=== PATIENT | male | born 1955 | race Caucasian/White ===

== ENCOUNTER 2019-07-18 09:29 | Outpatient (CLI) | payer BC, SELFPAY ==
[2019-07-19 10:02] LABS: PSA, Diagnostic 0.5 ng/mL (0.0-4.5)
[2019-07-19 10:51] LABS: Hepatitis C Ab w Rflx HCV PCR Negative (Negative)
== END 2019-07-18 09:49 ==
PROVIDERS: PCP Family Medicine; Visit Provider Family Medicine
DX: Z00.00 Encounter for general adult medical examination without abnormal findings (principal); N40.0 Benign prostatic hyperplasia without lower urinary tract symptoms; L98.9 Disorder of the skin and subcutaneous tissue, unspecified
CPT/HCPCS: 36415; 86803; 84153

== ENCOUNTER → 2021-11-01 13:07 | Outpatient (CLI) | payer MEDICARE, SELFPAY ==
--- NOTE | 2021-11-01 13:00 | DI.RAD_ITS ---
Exam(s) XR CERVICAL SPINE COMP 4-5V EXAM: XR CERVICAL SPINE COMP 4-5V CLINICAL HISTORY: lt neck and arm pain,G54.0,cervical radicular pain,M54.12, thoracic outlet. TECHNIQUE: 2D digital imaging was performed. Five views. COMPARISON: No exams were available for comparison FINDINGS: BONES: No fracture or destructive lesion. Endplate osteophytes projecting anteriorly at C5-6. Facets: Degenerative changes throughout, greatest on the left, causing neural foraminal narrowing, gr eatest at C5-6. Right-sided neural foraminal narrowing is seen at C3-4. DISKS: Moderate to severe narrowing of the C5-6 disc space. The remaining intervertebral disc spaces are maintained. ALIGNMENT: Cervical spinal alignment is within normal limits. The odontoid and atlantoaxial articulat ions are normal. SOFT TISSUE: Chronic appearing soft tissue calcification posterior soft tissues. The lung apices are clear. IMPRESSION: Degenerative disc changes at C5-6. Multilevel facet degenerative changes, greater on the left forami nal narrowing. DATA REPOSITORY: RADIATION DOSE DELIVERED:
[2021-11-01 23:13] LABS: PSA, Diagnostic 0.6 ng/mL (<=4.5)
== END ==
PROVIDERS: PCP Family Medicine; Visit Provider Family Medicine
DX: N40.0 Benign prostatic hyperplasia without lower urinary tract symptoms (principal); M47.22 Other spondylosis with radiculopathy, cervical region; M48.02 Spinal stenosis, cervical region; M79.602 Pain in left arm; Z80.42 Family history of malignant neoplasm of prostate
CPT/HCPCS: 36415; 72050; 84153

== ENCOUNTER 2021-11-01 18:16 | Outpatient (CLI) | payer MEDICARE, SELFPAY | END 2021-11-01 18:17 | disposition home or self-care (01) | LOC: LBO 18:17 | PROVIDERS: PCP Family Medicine; Visit Provider Family Medicine ==

== ENCOUNTER 2022-11-15 03:24 | Outpatient (CLI) | payer MEDICARE, SELFPAY ==
[2022-11-16 18:09] LABS: PSA, Diagnostic 0.5 ng/mL (<=4.5)
== END 2022-11-15 03:25 | disposition home or self-care (01) ==
LOC: LBO 03:24
PROVIDERS: PCP Family Medicine; Visit Provider Family Medicine
DX: N40.0 Benign prostatic hyperplasia without lower urinary tract symptoms (principal)
CPT/HCPCS: 36415; 84153

== ENCOUNTER 2022-11-18 00:38 | Outpatient (CLI) | payer MEDICARE, SELFPAY ==
--- NOTE | 2022-11-18 07:59 | DI.RAD_ITS ---
Exam(s) XR KNEE LT 3V AP,LAT,[place] EXAM: XR KNEE LT 3V AP,LAT,[place] CLINICAL HISTORY: l knee pain, M25.562. TECHNIQUE: 2D digital imaging was performed of the left knee. Three images were obtained. AP, late ral and PA tunnel views were obtained. COMPARISON: No exams were available for comparison FINDINGS: BONES: No acute fracture is present. No bony destructive lesion is seen. JOINTS: There is moderate narrowing of the medial femoral tibial joint. There is a small spur at the medial aspect of the tibial plateau. No joint effusion is seen. SOFT TISSUE: There is a tiny well corticated old soft tissue calcification adjacent to the medial fem oral condyle. This may reflect old injury. Atherosclerosis is present. IMPRESSION: Mild degenerative changes of the left knee. DATA REPOSITORY: RADIATION DOSE DELIVERED:
== END 2022-11-18 00:58 ==
LOC: DI 00:39
PROVIDERS: PCP Family Medicine; Visit Provider Family Medicine
DX: M17.12 Unilateral primary osteoarthritis, left knee (principal)
CPT/HCPCS: 73562

== ENCOUNTER 2023-03-03 02:32 | Outpatient (CLI) | payer MEDICARE, SELFPAY ==
[2023-03-03 09:07] LABS: ALT 24 U/L (16-63); AST 20 U/L (15-37); Albumin 3.7 g/dL (3.4-5.0); Alkaline Phosphatase 80 U/L (46-116); Anion Gap 8.3 mmol/L (3-11); BUN 24 mg/dL (7-18); Bilirubin, Total 0.6 mg/dL (0.2-1.0); CO2 23.7 mmol/L (21.0-32.0); CREATININE 1.1 mg/dL (0.70-1.30); Calcium 9.1 mg/dL (8.5-10.1); Calculated LDL 152 mg/dL (<100); Chloride 105 mmol/L (98-107); Cholesterol 226 mg/dL (<200); Estimated GFR 72.67 (mL/min/1.73m2); Glucose 97 mg/dL (74-106); HDL Cholesterol 64 mg/dL (40-60); Sodium 137 mmol/L (136-145); Triglyceride 52 mg/dL (<150)
[2023-03-07 16:07] LABS: Apolipoprotein B, Serum 98 mg/dL; Beta VLDL Cholesterol Not Detected mg/dL (<15); Beta VLDL Triglycerides Not Detected mg/dL (<15); Cholesterol, Total, CDC 221 mg/dL; Chylomicron Cholesterol Not Detected; Chylomicron Triglycerides Not Detected; HDL Cholesterol, CDC 55 mg/dL (>=40); LDL Cholesterol 141 mg/dL; LDL Triglycerides 25 mg/dL (<=50); Lp(a) Cholesterol 11 mg/dL (<5); LpX Not detected; Triglycerides, CDC 66 mg/dL; VLDL Cholesterol 14 mg/dL (<30); VLDL Triglycerides 24 mg/dL (<120)
== END 2023-03-03 02:33 | disposition home or self-care (01) ==
LOC: LBO 02:33
PROVIDERS: PCP Family Medicine; Visit Provider Family Medicine
DX: E78.5 Hyperlipidemia, unspecified (principal); I10 Essential (primary) hypertension
CPT/HCPCS: 36415; 80053; 80061; 82172; 82664

== ENCOUNTER → 2023-12-08 16:22 | Outpatient (CLI) | payer MEDICARE, SELFPAY ==
--- NOTE | 2023-12-08 15:33 | DI.RAD_ITS ---
Exam(s) XR LUMBAR SPINE COMPLETE EXAM: XR LUMBAR SPINE COMPLETE CLINICAL HISTORY: M54.50 lbp with intermittent radiculopathy b/l. TECHNIQUE: 2D digital imaging was performed. Five views. COMPARISON: No exams were available for comparison FINDINGS: BONES: No fracture or destructive lesion. Vertebral body heights are maintained. Lower lumbar facet hypertrophy identified greatest at L4-5.. DISKS: Bsaq-ge-yaelbrhl narrowing of the L3-4 disc space. Lopl-gg-zftjhtrx narrowing of the L5-S1 di sc space. Endplate osteophytes are noted throughout. Intervertebral disc spaces are maintained. ALIGNMENT: Degenerative scoliosis. SOFT TISSUE: Normal. IMPRESSION: Degenerative disc changes and facet degenerative changes. DATA REPOSITORY: RADIATION DOSE DELIVERED:
--- OUTSIDE RECORDS SUMMARY | 2023-12-08 16:26 | XMS_ITS | Encounter Summary ---
Author Organization [facility] Address [address] [place] [address] Care Team Providers Care Mandolin Repair Person Name Role Phone Unknown, Provider Primary Care Provider [phone] Encounter Details Date Type Department Care Team (Late st Contact Info) Description 07/18/2019 Lab Requisition [facility] Pathology & Laboratory Medicine - [address] [address] Unknown, Provider, Social History Tobacco Use Types Packs/Day Years Used Date Smoking Tobacco: Never Assessed Sex and Gender Information Value Date Recorded Sex Assigned at Not on file Gender Identity Not on file Sexual Orientation Not on file documented as of this encounter Plan of Treatment Not on file documented as of this encounter Procedures Procedure Name Priority Date/Time Associated Diagnosis Comments HEPATITIS C AB W REFLEX TO HCV RNA BY PCR Routine 07/18/2019 9:33 EST documented in this encounter Results * HEPATITIS C AB W REFLEX TO HCV RNA BY PCR (07/18/2019 9:33 EST) Hep C Antibody Negative Negative 07/19/2019 10:47 EST [facility] Blood VENOUS BLOOD / Unknown 07/18/2019 9:33 EST 07/18/2019 20:24 EST Provider Unknown CHEMISTRY & BLOOD GA S ORDERABLES [facility] [address] [place] [address] documented in this encounter Visit Diagnoses Not on filedocumented in this encounter Care Teams Mandolin Repair Person Relationship Specialty Start Date End Date Unknown, Provider, PCP - General 08/02/12 documented as of this encounter
--- OUTSIDE RECORDS SUMMARY | 2023-12-08 16:26 | XMS_ITS | Continuity of Care Document ---
Author Organization [facility] Address [address] [place] [address] Care Team Providers Care Medical Practice Manager Name Role Phone CHIP RAMIREZ,DC, WANDER Jacques Primary Care Physician Encounter [facility] NBR [id number] Date(s): 02/14/23 - 02/14/[address] [address]- Encounter Diagnosis Pain in left knee(Final) - Discharge Disposition: Home or Self Care Attending Physician: John Meng MD Admitting Physician: John Meng MD Allergies, Adverse Reactions, Alerts Substance Reaction Severity Status penicillin Moderate Active Problem List Condition Confirmation Course Effective Dates Status Health St atus Informant Left knee pain Confirmed Active Unilateral primary osteoarthritis, left knee Confirmed Active Results Radiology Reports * Exam Date Time Procedure Performing Provider Status 02/14/23 1:43 PM XR Knee Complete 4+ Views Left Alejandro Clay (Verified) Notes: (XR Knee Complete 4+ Views Left) Reason For Exam: Left knee pain XR Knee Complete 4+ Views Left EXAM DESCRIPTION: XR Knee Complete 4+ Views Left 02/14/2023 INDICATION: LEFT KNEE PAIN COMPARISON: None IMPRESSION: No acute fracture or dislocation Medial femorotibial compartment joint space narrowing and mild osteophyte formation consistent with osteoarthritic changes. No focal lytic or sclerotic lesion Increased density in the suprapatellar region on the lateral view suspicious for component of joint effusion. Small corticated osseous density adjacent to the medial aspect of the medial femoral condyle suggesting sequela of old injury. JOB #: [id number] Final Signed by: Earl Alvarado MD Signed (Electronic Signature): 02/14/2023 1:53 pm Social History Social History Type Response Tobacco Never tobacco user T obacco Use:. Sex Patient Care team information Care Team Personnel Name: CHIP RAMIREZ,DC, WANDER Jacques Position: No Access Member Role: Primary Care Physician Address: Address: [address] [address]- Care Team Related Persons Name: LAMINE BOATENG Address: [address] Name: LAMINE BOATENG Address: Home [address] [place] [id number] [facility]
--- OUTSIDE RECORDS SUMMARY | 2023-12-08 16:26 | XMS_ITS | Encounter Summary ---
Author Organization [facility] [place] [address] Care Team Providers Care Plodder Operator Name Role Phone Ryanne Murphy MD Primary Care Provider [phone] Encounter Details Date Type Department Care Team (Latest Contact Info) Description 12/12/2018 9:14 PM EDT - 12/12/2018 11:59 PM EDT Hospital [place] [address] Discharge Disposition: Home Social History Tobacco Use Types Packs/Day Years Used Date Smoking Tobacco: Never Assessed Sex and Gender Information Value Date Recorded Sex Assigned at Not on file Gender Identity Not on file Sexual Orientation Not on file documented as of this encounter Plan of Treatment Not on file documented as of this encounter Procedures Procedure Name Priority Date/Time Associated Diagnosis Comments SURGICAL PATHOLOGY REPORT Routine 12/12/2018 6:40 PM EDT documented in this encounter Results * Surgical Pathology Report (12/12/2018 6:40 PM EDT) Surgical Pathology Report [id number] ? Location: [facility] The signing pathologist has (i) examined the relevant preparation(s) for the specimen(s) and (ii) rendered or confirmed the diagnosis(es). . ?Surgical Pathology DIAGNOSIS Right posterior rectal hemorrhoid: Thrombosed benign hemorrhoid Electronically signed by: ??Ishan Santana MD, I Verified: ??12/14/2018 ?Pathologist Performed at: ??-[facility] [place] Dept. of Pathology, [place], [place] CLINICAL INFORMATION Specimen Submitted: A - Right posterior rectal hemorrhoid Clinical History and Diagnosis: Bloody thrombosed right posterior hemorrhoid Referring Identifier: ?(not provided) SPECIMEN PROCESSING A - Labeled/Fixativ e: Right posterior rectal hemorrhoid, formalin. Quantity/Size: ??Single, 3 x 1.4 x 1.4 cm. Tissue Description: Intact, polypoid portions of pink-red mucosa with underlying, congested vasculature. Sections/Proces sing: Inked and serially sectioned. Log Grader sections in 1 cassette labeled A1. ??jmb [facility] 12/12/2018 6:40 PM EDT Alejandro Gooden DO PATHOLOGY/CYT OLOGY ORDERABLES [facility] [place] [address] documented in this encounter Visit Diagnoses Not on filedocumented in this encounter Care Teams Plodder Operator Relationship Specialty Start Date End Date Ryanne Murphy MD [address] [place] [address] PCP - General 04/20/10 documented as of this encounter
--- OUTSIDE RECORDS SUMMARY | 2023-12-08 16:26 | XMS_ITS | Clinical Summary ---
[place] [address] Care Team Providers Care Size Tester Name Role Phone Ryanne Murphy MD Primary Care Provider [phone] Allergies Active Allergy Reactions Criticality Noted Date Comments Penicillins CIS - Hives Immunizations Name Administration Dates Next Due TD Adult 10/21/2003 Social History Tobacco Use Types Packs/Day Years Used Date Smoking Tobacco: Never Assessed Sex and Gender Information Value Date Recorded Sex Assigned at Not on file Gender Identity Not on file Sexual Orientation Not on file Plan of Treatment Health Maintenance Due Date Last Done Comments CT Colonography 1955 Colonoscopy 1955 Colorectal Cancer Screening 1955 FIT DNA 1955 FIT 1955 Sigmoidoscopy (10 year) with FIT yearly 1955 Sigmoidoscopy 1955 Hepatitis C Screening 01/21/1972 Lipid Screening 01/21/1972 Tdap adult 1973 Zoster vaccine (1 of 2) 01/21/2004 Advance Directive 2009 Tetanus vaccine 10/20/2013 10/21/2003 Pneumoccocal Vaccine: 65+ (1 of 1 - PCV) 2019 Covid-19 Vaccine (1 - 2022- season) 2023 Influenza (Flu) vaccine (1 o f 1 - Influenza standard series) 01/28/2024 Care Teams Size Tester Relationship Specialty Start Date End Date Ryanne Murphy MD [address] [place], [place] [id number] PCP - General 04/20/10
--- OUTSIDE RECORDS SUMMARY | 2023-12-08 16:26 | XMS_ITS | Clinical Summary ---
Author Organization [facility] Address [address] [place] [address] Care Team Providers Care Japanese Interpreter Name Role Phone Unknown, Provider Primary Care Provider [phone] Social History Tobacco Use Types Packs/Day Years Used Date Smoking Tobacco: Never Assessed Sex and Gender Information Value Date Recorded Sex Assigned at Not on file Gender Identity Not on file Sexual Orientation Not on file Plan of Treatment Health Maintenance Due Date Last Done Comments RSV Immunization ( o r 60+ Years) (1 - 1-dose 60+ series) 2014 Fall Risk Screening 2019 COVID-19 Vaccine ( season) 2023 Hepatitis C Screen Completed 07/18/2019 Procedures Procedure Name Priority Date/Time Associated Diagnosis Comments HEPATITIS C AB W REFLEX TO HCV RNA BY PCR Routine 07/18/2019 9:33 EST from Last 3 Months or Most Recently Relevant to Health Maintenance Results * HEPATITIS C AB W REFLEX TO HCV RNA BY PCR (07/18/2019 9:33 EST) Hep C Antibody Negative Negative 07/19/2019 10:47 EST [facility] Blood VENOUS BLOOD / Unknown 07/18/2019 9:33 EST 07/18/2019 20:24 EST Provider Unknown CHEMISTRY & BLOOD GA S ORDERABLES [facility] [address] [place] [address] from Last 3 Months or Most Recently Relevant to Health Maintenance Care Teams Japanese Interpreter Relationship Specialty Start Date End Date Unknown, Provider, PCP - General 3/7/13
--- OUTSIDE RECORDS SUMMARY | 2023-12-08 16:26 | XMS_ITS | Encounter Summary ---
Author Organization [facility] Address [address] [place] [address] Care Team Providers Care Compo Conveyor Operator Name Role Phone Unavailable Primary Care Provider Unavailabl e Encounter Details Date Type Department Care Team (Late st Contact Info) Description 06/19/2007 Results Only [facility] [address] [place] [address] Alejandro Izaguirre, DO [address] [facility] [address] [place] [address] Social History Tobacco Use Types Packs/Day Years Used Date Smoking Tobacco: Never Assessed Sex and Gender Information Value Date Recorded Sex Assigned at Not on file Gender Identity Not on file Sexual Orientation Not on file documented as of this encounter Plan of Treatment Not on file documented as of this encounter Procedures Procedure Name Priority Date/Time Associated Diagnosis Comments SURGICAL PATHOLOGY Routine 06/19/2007 0:00 EST documented in this encounter Results * SURGICAL PATHOLOGY (06/19/2007 0:00 EST) Pathology Report: SURGICAL PATHOLOGY REPORT Reports generated via electronic interface contain original data; however they are lacking the format of the original report. Caution should be taken when reading/interpreti ng unformatted reports. Name: ? CACHORRO BOATENG ? Accession #: ? [id number] ? : ? 1955 (Age: 52) ??M ? Collect Date: ? 06/19/2007 ? Location: ? [facility] ? Receive Date: ? 06/19/2007 ? Provider: ALEJANDRO IZAGUIRRE DO Copy to: WANDER SAUNDERS MD ? Final Pathologic Diagnosis: ? Colon, 30 cm, polypectomy: - Polypoid colonic mucosa with surface hyperplastic changes. ??See comment. Comment: ? Deeper levels have been examined. ??(Dr. Galvez)/[facility] Document reviewed and electronically signed by: JADA GALVEZ MD Report ??Date: 06/21/2007 21:15 By the signature above, the attending physician certifies that he/she has personally conducted a gross and/or microscopic examination of the described specimens and rendered or confirmed the above diagnosis. Specimen(s) Received: ? Polyp 30 cm Clinical History: ? Screening for colon Ca Gross Description: ? Received in Hollande's fixative labelled Boateng and polyp 30 cm is a 0.5 x 0.4 x 0.4 cm hand-pink soft tissue fragment. ??This specimen is submitted intact in one cassette. ??(Dr. Cho)/[facility] End of Report JENNIFER YU 06/19/2007 06/19/2007 15: 21 EST Alejandro Izaguirre DO PATHOLOGY ORDER [facility] [address] [place] [address] documented in this encounter Visit Diagnoses Not on filedocumented in this encounter
--- OUTSIDE RECORDS SUMMARY | 2023-12-08 16:26 | XMS_ITS | Continuity of Care Document ---
Author Organization [facility] Address [address] [place] [address] Care Team Providers Care Gummed Tape Press Operator Name Role Phone CHIP RAMIREZ,DC, WANDER Jacques Primary Care Physician Encounter [facility] NBR [id number] Date(s): 02/14/23 - 02/14/23 [facility] [address] [place], [place] [address] Encounter Diagnosis Unilateral primary osteoarthritis, left knee(Discharge Diagnosis) - 02/14/23 Discharge Disposition: Home or Self Care Attending Physician: John Meng MD Allergies, Adverse Reactions, Alerts Substance Reaction Severity Status penicillin Moderate Active Medications No Known Medications Problem List Condition Confirmation Course Effective Dates Status Health St atus Informant Left knee pain Confirmed Active Unilateral primary osteoarthritis, left knee Confirmed Active Vital Signs Most recent to oldest [Reference Range]: 1 Peripheral Pulse Rate [60-100 bpm] 78 bp m (02/14/23 12:57 PM) Blood Pressure [90-140/60-90 mmHg] 110/7 5mmHg (02/14/23 12:57 PM) Weight 89.90 kg (02/14/23 12:57 PM) Weight Measured (lbs) 198.195 lb (02/14/23 12:57 PM) Height 187.96 cm (02/14/23 12:57 PM) Height/Length Measured (inches) 74 inch (02/14/23 12:57 PM) BSA Measured 2.17 m2 (02/14/23 12:57 PM) Body Mass Index 25.45 kg/m2 (02/14/23 12:57 PM) Social History Social History Type Response Tobacco Never tobacco user T obacco Use:. 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 ??The patient states that 4 years ago while [place] [employer] he recalls??going over an embankment and injuringhis left knee. ??He states that his knee swelled for a few days. ??He states that until about 3 years ago he experienced loss of terminal extension??and locking. ??However, this improved to the pointthat he was able to regain full extension. ??Since that time, he has persisted with??medial sided knee pain, particular with activities that involve twisting of his left lower extremity??such as turning while skiing or walking on unlevel ground. ??He denies swelling??but has been experiencing a crunching sensation about the medial aspect of his knee. ??He denies instability or limping.?? He triedOTC medial arch orthoses which resulted in increased pain. ??He has since stopped using them. ??He denies night pain, numbness, or tingling. ??He has not found anti-inflammatories to be helpful for his knee. Physical Exam Vitals & Measurements HR:??78??(Peripheral)?? BP:??110/75?? SpO2:??99%?? HT:??187.96??cm?? WT:??89.90??kg?? BMI:??25.45?? BSA:??2.17?? The patient's left lower extremity is neurovascularly intact. ??Sensation and motor exam are intactdistally. ??All digits are warm and pink.?? No swelling or effusion of the knee is present. ??He isin mild tibiofemoral varus which is similar to the right side.?? Range of motion of the knee is full and painless. ??Antonette's test is negative.?? The knee was found to be stable to anterior, posterior, varus, and valgus stress.?? No focal tenderness is present about the knee. Assessment/Plan 1.??Unilateral primary osteoarthritis, left knee??M17.12 Orders: XR Knee Complete 4+ Views Left, 02/14/23, Routine, Reason: Left knee pain, Transport Mode: Ambulatory, Left knee pain The patient demonstrates evidence of left medial sided knee pain secondary to primary unilateral osteoarthritis. ??Based on the patient's history, it is likely that he??experienced a displaced meniscal tear with incarceration??and that this eventually??resulted in complete tearing with zoroastrianism of range of motion.?? The treatment options were discussed with the patient will be furnished with the AAOS exercises for the knee. ??I have also recommended that??he obtain 3/8 inch lateral heel wedges.?? I did??skilled nursing facility counselor the patient that by wearing medial arch orthoses, he likely increased the medial compartment pressures of his knee??resulting in increase??symptoms. ??The patient verbalized understanding and agreed. ??I have encouraged the patient to??discuss the potential for atherosclerosis??with his PCP??given the vascular calcifications seen on today's??studies. ??The patient verbalized understanding and all questions were answered. ??He will contact us with any questions or concerns, ot herwise we will see him on an as needed basis. Follow Up Instructions With When Contact Information Patient to call as needed Additional Instructions: Problem List/Past Medical History Ongoing Left knee pain Unilateral primary osteoarthritis, left knee Historical No qualifying data Medications No active medications Allergies penicillin Social History Electronic Cigarette/Vaping Electronic Cigarette Use: Never. Tobacco Never tobacco user Tobacco Use:. Diagnostic Results Diagnostic Study Interpretation: Indication for study: Left knee pain Views: 4 views of the left knee ?? I personally viewed and interpreted the radiographs in the generation of this report. ?? Findings: No fracture or dislocation is observed. ??Severe medial compartment DJD is present. ??The lateral compartment is preserved. ??A small ossicle is present adjacent to the medial femoral condyle consistent with previous injury. ??The patellofemoral joint is congruent. ??He demonstrates a proximal patellar enthesophyte. ??The patient demonstrates small scattered??regional vascular calcifications posterior to the distal femur. Electronically Signed on 02/14/23 01:23 PM John Meng MD Patient Care team information Care Team Personnel Name: CHIP RAMIREZ,DC, WANDER Jacques Position: No Access Member Role: Primary Care Physician Address: Address: [address] [address]- [place] Care Team Related Persons Name: LAMINE BOATENG Address: [address] [id number] [facility] Name: LAMINE BOATENG Address: Home [address] [place] [id number] [place] [address]
--- OUTSIDE RECORDS SUMMARY | 2023-12-08 16:26 | XMS_ITS | Encounter Summary ---
Author Organization [facility] Address [address] [place] [address] Care Team Providers Care Value Stream Manager Name Role Phone Unknown, Provider Primary Care Provider [phone] Encounter Details Date Type Department Care Team (Late st Contact Info) Description 11/01/2021 Lab Requisition [facility] Pathology & Laboratory Medicine - [facility] [address] [place] [address] Outr Resulting Lab, Provider Social History Tobacco Use Types Packs/Day Years Used Date Smoking Tobacco: Never Assessed Sex and Gender Information Value Date Recorded Sex Assigned at Not on file Gender Identity Not on file Sexual Orientation Not on file documented as of this encounter Plan of Treatment Not on file documented as of this encounter Procedures Procedure Name Priority Date/Time Associated Diagnosis Comments PSA TOTAL, DIAGNOSTIC Routine 11/01/2021 15:16 EDT documented in this encounter Results * PSA TOTAL, DIAGNOSTIC (11/01/2021 15:16 EDT) PSA 0.6 <=4.5 ng/mL 11/01/2021 23:09 EDT [facility] Blood VENOUS BLOOD / Unknown 11/01/2021 15:16 EDT 11/01/2021 22:31 EDT Narrative [facility] - 11/01/2021 23:09 EDT NOTE: Serum PSA concentration should not be interpreted as absolute evidence for the presence or absence of malignant disease. Assayed on Siemens ADVIA Centaur XPT using chemiluminescent technology.??Values obtained by using different assay methods cannot be used interchangeably. Provider Outr Resulting Lab CHEMISTRY & BLOOD GAS ORDERABLES [facility] [address] [place] [address] documented in this encounter Visit Diagnoses Not on filedocumented in this encounter Care Teams Value Stream Manager Relationship Specialty Start Date End Date Unknown, Provider, PCP - General 08/02/12 documented as of this encounter
--- OUTSIDE RECORDS SUMMARY | 2023-12-08 16:26 | XMS_ITS | Encounter Summary ---
Author Organization [facility] Address [address] [place] [address] Care Team Providers Care Nutritional Yeast Supervisor Name Role Phone Unknown, Provider Primary Care Provider [phone] Encounter Details Date Type Department Care Team (Late st Contact Info) Description 11/16/2022 Lab Requisition [facility] Pathology & Laboratory Medicine - [facility] [address] [place] [address] Outr Resulting Lab, Provider Social History Tobacco [...] Associated Diagnosis Comments PSA TOTAL, DIAGNOSTIC Routine 11/15/2022 16:00 EDT documented in this encounter Results * PSA TOTAL, DIAGNOSTIC (11/15/2022 16:00 EDT) PSA 0.5 <=4.5 ng/mL 11/16/2022 18:04 EDT [facility] Blood VENOUS BLOOD / Unknown 11/15/2022 16:00 EDT 11/16/2022 16:58 EDT Narrative [facility] - 11/16/2022 18:04 EDT NOTE: Serum PSA concentration should not be interpreted as absolute evidence for the presence or absence of malignant disease. Assayed on Siemens ADVIA Centaur XPT using chemiluminescent technology.??Values obtained by using different assay methods cannot be used interchangeably. Provider Outr Resulting Lab CHEMISTRY & BLOOD GAS ORDERABLES [facility] [address] [place] [address] documented in this encounter Visit Diagnoses Not on filedocumented in this encounter Care Teams Nutritional Yeast Supervisor Relationship Specialty Start Date End Date Unknown, Provider, PCP - General 08/02/12 documented as of this encounter
--- OUTSIDE RECORDS SUMMARY | 2023-12-08 16:26 | XMS_ITS | Encounter Summary ---
Author Organization [facility] Address [address] [place] [address] Care Team Providers Care Certified Physician Assistant Name Role Phone Unknown, Provider Primary Care Provider [phone] Encounter Details Date Type Department Care Team (Late st Contact Info) Description 07/18/2019 Lab Requisition [facility] Pathology & Laboratory Medicine - [address] [address] Unknown, Provider, Social History Tobacco Use Types [...] Associated Diagnosis Comments PSA TOTAL, DIAGNOSTIC Routine 07/18/2019 9:33 EST documented in this encounter Results * PSA TOTAL, DIAGNOSTIC (07/18/2019 9:33 EST) PSA 0.5 0.0 - 4.5 ng/mL 07/19/2019 9:57 EST [facility] Blood VENOUS BLOOD / Unknown 07/18/2019 9:33 EST 07/18/2019 20:24 EST Narrative [facility] - 07/19/2019 9:57 EST NOTE: Serum PSA concentration should not be interpreted as absolute evidence for the presence or absence of malignant disease. Assayed on Siemens ADVIA Centaur XPT using chemiluminescent technology.??Values obtained by using different assay methods cannot be used interchangeably. Provider Unknown CHEMISTRY & BLOOD GA S ORDERABLES [facility] [address] [place] [address] documented in this encounter Visit Diagnoses Not on filedocumented in this encounter Care Teams Certified Physician Assistant Relationship Specialty Start Date End Date Unknown, Provider, PCP - General 08/02/12 documented as of this encounter
--- OUTSIDE RECORDS SUMMARY | 2023-12-08 16:26 | XMS_ITS | Referral Summary ---
Author Organization [facility] Address [address] [place] [address] Care Team Providers Care Pharmacy Student Name Role Phone Unknown, Provider Primary Care Provider [phone] Social History Tobacco Use Types Packs/Day Years Used Date Smoking Tobacco: Never Assessed Sex and Gender Information Value Date Recorded Sex Assigned at Not on file Gender Identity Not on file Sexual Orientation Not on file Plan of Treatment Not on file Procedures Procedure Name Priority Date/Time Associated Diagnosis Comments HEPATITIS C AB W REFLEX TO HCV RNA BY PCR Routine 07/18/2019 9:33 EST from Last 3 Months or Most Recently Relevant to Health Maintenance Results * HEPATITIS C AB W REFLEX TO HCV RNA BY PCR (07/18/2019 9:33 EST) Hep C Antibody Negative Negative 07/19/2019 10:47 EST [facility] Blood VENOUS BLOOD / Unknown 07/18/2019 9:33 EST 07/18/2019 20:24 EST Provider Unknown CHEMISTRY & BLOOD GA S ORDERABLES [facility] [address] [place] [address] from Last 3 Months or Most Recently Relevant to Health Maintenance Care Teams Pharmacy Student Relationship Specialty Start Date End Date Unknown, Provider, PCP - General 08/02/12
--- OUTSIDE RECORDS SUMMARY | 2023-12-08 16:26 | XMS_ITS | Encounter Summary ---
Author Organization [facility] Address [address] [place] [address] Care Team Providers Care Cardiac Rehabilitation Program Director Name Role Phone Unavailable Primary Care Provider Unavailabl e Encounter Details Date Type Department Care Team (Late st Contact Info) Description 07/31/2012 Results Only [facility] [place] [address] [place] [address] [phone] Ryanne Murphy MD [address] [place] [address] [address] [place] [address] Social History Tobacco Use Types Packs/Day Years Used Date Smoking Tobacco: Never Assessed Sex and Gender Information Value Date Recorded Sex Assigned at Not on file Gender Identity Not on file Sexual Orientation Not on file documented as of this encounter Plan of Treatment Not on file documented as of this encounter Procedures Procedure Name Priority Date/Time Associated Diagnosis Comments SURGICAL PATHOLOGY Routine 07/31/2012 8:50 EST documented in this encounter Results * SURGICAL PATHOLOGY (07/31/2012 8:50 EST) Pathology Report: SURGICAL PATHOLOGY REPORT Reports generated via electronic interface contain original data; however they are lacking the format of the original report. Caution should be taken when reading/interpreting unformatted reports. Name: ? CACHORRO BOATENG ? Accession #: ? [id number] ? : ? 1955 (Age: 57) ??M ? Collect Date: ? 07/31/2012 ? Location: ? [facility] ? Receive Date: ? 08/01/2012 ? Provider: RYANNE MURPHY MD Copy to: ? Final Pathologic Diagnosis: ? Skin of arm, left upper, punch biopsy: - Lichenoid inflammation with reactive epidermal changes and intracorneal hemorrhage. ??See ??comment. Comment: ? The histopathologic features, given the clinical history that suggests a solitary lesion, are most consistent with a lichenoid keratosis. ??If this is part of an eruption, these features can be seen in lichen planus. ??There is no evidence of a melanocytic proliferation. ??(Dr. Haywood)/esme Microscopic Description: ? Sections consist of a punch biopsy of skin to the superficial subcutis. The stratum corneum has laminated orthohyperkeratosis with entrapped blood. ??The epidermis varies in thickness, but has a generally tapered and blunted rete ridge pattern. ??There is interface alteration with vacuolization and individual/clustered necrotic keratinocytes. ??The interface changes are associated with a patchy lichenoid inflammatory infiltrate that partially obscures the junction. ??The infiltrate is composed primarily of lymphomononuclear cells. ??The keratinocytes show mild reactive changes with a focally accentuated granular layer. ??There are areas of dermal edema with vascular ectasia and erythrocyte extravasation. ??Scattered melanophages are present. ??(Dr. Haywood)/esme Document reviewed and electronically signed by: RADHA HAYWOOD MD Report ??Date: 08/01/2012 15:34 By the signature above, the attending physician certifies that he/she has personally conducted a gross and/or microscopic examination of the described specimens and rendered or confirmed the above diagnosis. Specimen(s) Received: ? 3.0 mm punch bx Clinical History: ? Left upper arm-irritated mole. Pt recently picked it off. Multicolor, irreg shaped Gross Description: ? Received in formalin labelled BoatengCachorro and Lt upper arm is a punch biopsy of hand-white skin measuring 0.3 cm in diameter and 0.5 cm in thickness. ??There is a slightly eccentric 0.3 x 0.2 cm irregular brown and warner-black mottled macule. ??The specimen is submitted intact as (1). (Coretta Garvin)/mpl End of Report [facility] 07/31/2012 8:50 EST 08/01/2012 8:50 EST Ryanne Murphy MD PATHOLOGY ORDERABLE S [facility] [address] [place] [address] documented in this encounter Visit Diagnoses Not on filedocumented in this encounter
== END ==
PROVIDERS: PCP Family Medicine; Visit Provider Family Medicine
DX: M54.50 Low back pain, unspecified (principal); M51.36 Other intervertebral disc degeneration, lumbar region
CPT/HCPCS: 72110

== ENCOUNTER → 2023-12-28 02:44 | Outpatient (CLI) | payer MEDICARE, SELFPAY ==
--- NOTE | 2023-12-28 06:30 | DI.MRI_ITS ---
Exam(s) MR LUMBAR SPINE WO EXAM: MR LUMBAR SPINE WO CLINICAL HISTORY: probable L4-5 disc, central vs spinal stenosis, LUMBAR RADICULAR SYNDROME. TECHNIQUE: Multiplanar multisequence MRI of the Lumbar spine was performed. COMPARISON: CR XR LUMBAR SPINE COMPLETE from 12/08/2023 FINDINGS: Bones: The last intervertebral disc space is designated the L5/S1 level for the numbering purpose of this ex amination. The vertebral body heights are well maintained. Alignment: Unremarkable. The marrow signal characteristics are unremarkable. Cord: The conus tip ends at the T12 level. It is of normal size and signal intensity. T12-L1: No focal disc herniation is present. No central spinal canal stenosis.No neural foraminal st enosis. L1-2:Disc bulging, greater laterally, causing mild to moderate bilateral neural foraminal narrowing. No focal disc herniation is present. No central spinal canal stenosis. L2-3:Some small disc osteophytes. Mild facet degenerative changes. No focal disc herniation is pres ent. No central spinal canal stenosis.No neural foraminal stenosis. L3-4: Mild to moderate loss of disc height. Endplate osteophytes and broad-based disc bulging. Mild facet degenerative changes and ligamentous hypertrophy. No focal disc herniation is present. Mild central spinal canal stenosis.Mild bilateral neural foraminal stenosis. L4-5: Disc height is maintained. Small endplate osteophytes and broad-based disc bulging. Prominen t facet degenerative changes. Facet of the joint cyst projecting into the central canal, producing s evere central canal stenosis. The cyst measures 8.5 by 6 by 15 millimeters. No focal disc herniatio n is present. Mild bilateral neural foraminal narrowing. L5-S1: Small endplate osteophytes and mild broad-based disc bulging. Mild facet degenerative changes .No focal disc herniation is present. No central spinal canal stenosis.Mild bilateral neural forami nal stenosis. The visualized SI joints and sacrum are unremarkable. Soft tissues: The paraspinal soft tissues are unremarkable. IMPRESSION: Severe central canal stenosis at L4-5 secondary to a combination of degenerative disc changes, facet degenerative changes as well as facet joint cyst which project into the central canal. Mild neural foraminal narrowing secondary to a combination of degenerative changes at multiple levels . Findings greatest at L1-2. DATA REPOSITORY:
== END ==
PROVIDERS: PCP Family Medicine; Visit Provider Family Medicine
DX: M54.16 Radiculopathy, lumbar region (principal); M48.061 Spinal stenosis, lumbar region without neurogenic claudication; M51.36 Other intervertebral disc degeneration, lumbar region
CPT/HCPCS: 72148

== ENCOUNTER 2024-11-27 08:22 | Outpatient (CLI) | payer MEDICARE, SELFPAY ==
[2024-11-27 19:00] LABS: PSA, Diagnostic 1.3 ng/mL (<=6.5)
== END 2024-11-27 08:23 | disposition home or self-care (01) ==
LOC: LBO 08:23
PROVIDERS: PCP Family Medicine; Visit Provider Family Medicine
DX: R30.0 Dysuria (principal)
CPT/HCPCS: 36415; 84153

== ENCOUNTER 2024-11-27 13:50 | Outpatient (CLI) | payer MEDICARE, SELFPAY ==
[2024-11-27 13:03] LABS: Glucose Negative (Negative)
[2024-11-27 13:27] LABS: C & S Indicated? Yes; RBC >50 HPF (0-2); WBC >50 HPF (0-5)
== END 2024-11-27 13:51 | disposition home or self-care (01) ==
LOC: LBN 13:50
PROVIDERS: PCP Family Medicine; Visit Provider Family Medicine
DX: R30.0 Dysuria (principal)
CPT/HCPCS: 87077; 81003; 81015; 87086; 87186

== ENCOUNTER 2024-12-10 16:46 | Outpatient (REF) | payer MEDICARE, SELFPAY ==
[2024-12-10 14:29] LABS: Glucose Negative (Negative)
[2024-12-10 14:47] LABS: C & S Indicated? Yes
== END 2024-12-10 16:47 | disposition home or self-care (01) ==
LOC: LBN 16:46
PROVIDERS: PCP Family Medicine; Visit Provider Family Medicine
DX: R30.0 Dysuria (principal)
CPT/HCPCS: 87077; 81003; 81015; 87086; 87186

== ENCOUNTER 2024-12-31 15:31 | Outpatient (REF) | payer MEDICARE, SELFPAY ==
[2024-12-31 14:05] LABS: Glucose Negative (Negative)
[2024-12-31 14:23] LABS: C & S Indicated? No; RBC 0-2 HPF (0-2); WBC 0-2 HPF (0-5)
== END 2024-12-31 15:32 | disposition home or self-care (01) ==
LOC: LBN 15:31
PROVIDERS: PCP Family Medicine; Visit Provider Family Medicine
DX: R30.0 Dysuria (principal)
CPT/HCPCS: 81003; 81015

== ENCOUNTER 2025-01-07 00:51 | Outpatient (CLI) | payer MEDICARE, SELFPAY ==
--- NOTE | 2025-01-07 06:15 | DI.RAD_ITS ---
Exam(s) XR KNEE LT 3V AP,LAT,FLORENCE EXAM: XR KNEE LT 3V AP,LAT,[place]OR[place] CLINICAL HISTORY: knee pain,lt [id number]. TECHNIQUE: 2D digital imaging was performed. Three views. COMPARISON: CR XR KNEE RT 3V AP,LAT,FLORENCE from 01/07/2025 FINDINGS: BONES: No acute fracture is present. No bony destructive lesion is seen. Small enthesophyte at the upper pole of the patella. JOINTS: There is moderate to severe narrowing of the medial femoral tibial joint space. There is mild periarticular spurring. There is mild varus angulation. There is minimal spurring at the articular aspect of the patella. No joint effusion is seen. SOFT TISSUE: Normal. 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 DATA REPOSITORY: RADIATION DOSE DELIVERED:
--- NOTE | 2025-01-07 06:15 | DI.RAD_ITS ---
Exam(s) XR KNEE RT 3V AP,LAT,FLORENCE EXAM: XR KNEE RT 3V AP,LAT,[place] CLINICAL HISTORY: knee pain,rt [id number]. TECHNIQUE: 2D digital imaging was performed. Three views. COMPARISON: None FINDINGS: BONES: No acute fracture is present. No bony destructive lesion is seen. JOINTS: There is moderate to severe narrowing of the medial femoral tibial joint space. There is mild spurring of the medial femoral condyle and medial tibial plateau. There is minimal spurring at the articular aspect of the patella. There is a small enthesophyte at the upper pole of the patella. No joint effusion is seen. SOFT TISSUE: Normal. 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 DATA REPOSITORY: RADIATION DOSE DELIVERED:
--- NOTE | 2025-01-07 06:15 | DI.US_ITS ---
Exam(s) US AAA SCREENING EXAM: US AAA SCREENING CLINICAL HISTORY: previous smoker,[id number] COMPARISON: No exams were available for comparison FINDINGS: Abdominal Aorta: Proximal: 2.3 cm Mid: 1.9 cm Distal: 1.7 cm Iliacs: Right: 1.2 cm Left: 1.2 cm IMPRESSION: No evidence of abdominal aortic aneurysm. DATA REPOSITORY:
== END 2025-01-07 01:11 ==
PROVIDERS: PCP Family Medicine; Visit Provider Family Medicine
DX: M25.561 Pain in right knee (principal); M25.562 Pain in left knee; Z87.891 Personal history of nicotine dependence; Z13.6 Encounter for screening for cardiovascular disorders
CPT/HCPCS: 73562; 76706

== ENCOUNTER → 2025-01-31 08:20 | Outpatient (BNVA) | payer MEDICARE, SELFPAY | PROVIDERS: PCP Family Medicine; Referring Provider Family Medicine; Visit Provider Physician Assistant | DX: M17.0 Bilateral primary osteoarthritis of knee (principal) | CPT/HCPCS: 99203 ==